=== PATIENT | male | born 1950 | race Caucasian/White ===

== ENCOUNTER → 2022-05-09 | Outpatient (CLI) | payer OTHER ==
[~2022-05-09] MED LIST: AMIODARONE HCL200 MG PO; CALCIUM ACETAT667 M1 PO; ELIQUIS 5 MG TAB5 MG PO; LOPRESSOR 25 MG25 MG PO; NORVASC 5 MG TAB5 MG PO; SYNTHROID 25 M25 MCG PO
== END ==
LOC: US 10:33
DX: M79.661 Pain in right lower leg (principal); R60.0 Localized edema
CPT/HCPCS: 93971

== ENCOUNTER 2022-06-19 18:36 | Emergency (ER) | payer OTHER ==
[2022-06-19 21:19] LABS: HEMOGLOBIN 12.7 gm/dl (14.0-17.5); RED BLOOD COUNT 4.17 M/UL (4.20-5.50); WHITE BLOOD COUNT 7.1 K/UL (4.5-11.0)
[2022-06-19 21:43] LABS: BUN/CREATININE RATIO 10 (0-10)
== END 2022-06-20 00:13 | disposition home or self-care (01) ==
LOC: ER1 18:36
PROVIDERS: Physician Assistant
DX: U07.1 COVID-19 (principal); I12.0 Hypertensive chronic kidney disease with stage 5 chronic kidney disease or end stage renal disease; N18.6 End stage renal disease; I25.10 Atherosclerotic heart disease of native coronary artery without angina pectoris; Z99.2 Dependence on renal dialysis
CPT/HCPCS: 0240U; 70450; 71045; 80053; 82009; 82140; 82550; 82553; 83690; 84484; 85025; 85610; 85652; 85730; 86140; 87040; 93005; 96361; 96374; 99285; J0696